=== PATIENT | female | born 1975 | race Caucasian/White ===

== ENCOUNTER 2018-11-07 06:41 | Day surgery (SDC) | payer OTHER ==
[~2018-11-07] VITALS: Ht 177.8 cm; Wt 80.3 kg
[~2018-11-07 06:41] MED LIST: LR 1,000 ML IV ONE; MULTCAP PO; NS 1,000 ML IV SCH; SODIUM CHLORIDE 0.9% 1000ML IV SCH
[2018-11-07 07:11] LABS: HEMOGLOBIN 13.7 g/dl (12.0-15.5); MEAN CORPUSCULAR HEMOGLOBIN 31.4 pg (27.0-33.0); MEAN CORPUSCULAR HGB CONC 33.4 g/dl (32.0-36.5); MEAN CORPUSCULAR VOLUME 93.8 fl (80.0-96.0); PLATELET COUNT, AUTOMATED 134 10^3/uL (150-450); RED BLOOD COUNT 4.37 10^6/uL (4.00-5.40); WHITE BLOOD COUNT 5.7 10^3/uL (4.0-10.0)
[2018-11-07 07:41] LABS: BLOOD UREA NITROGEN 14 MG/DL (7-18); CALCIUM LEVEL 8.8 MG/DL (8.5-10.1); CARBON DIOXIDE LEVEL 27 MEQ/L (21-32); CHLORIDE LEVEL 108 MEQ/L (98-107); GLOMERULAR FILTRATION RATE > 60.0 (>58); GLUCOSE, FASTING 88 MG/DL (70-100); POTASSIUM SERUM 3.7 MEQ/L (3.5-5.1); SODIUM LEVEL 141 MEQ/L (136-145)
[2018-11-07] MEDS ORDERED: ACETAMINOPHEN 650 MG SUPP As Ordered ONE (08:56)
[2018-11-07] MEDS ORDERED: KETOROLAC 60 MG/2 ML VIAL (J1885) As Ordered ONE (09:13)
[2018-11-07] MEDS ORDERED: dexameTHASONE 4 MG/ML 1ML VIAL (J1100) As Ordered ONE (09:13)
[2018-11-07] MEDS ORDERED: MIDAZOLAM INJ 2 MG/2 ML VIAL (J2250) As Ordered ONE (09:13)
[2018-11-07] MEDS ORDERED: ePHEDrine SULFATE 25 MG/5 ML(5MG/ML) SYRINGE As Ordered ONE (09:13)
[2018-11-07] MEDS ORDERED: fentaNYL 100 MCG/2 ML INJECTION (J3010) As Ordered ONE (09:13)
[2018-11-07] MEDS ORDERED: LIDOCAINE 2% INJ 100 MG/5 ML SDV (FOR ANES.) As Ordered ONE (09:13)
[2018-11-07] MEDS ORDERED: ONDANSETRON 4MG/2ML VIAL (J2405) As Ordered ONE (09:14)
[2018-11-07] MEDS ORDERED: PROPOFOL 200 MG/20 ML VIAL As Ordered ONE (09:14)
[2018-11-07] MEDS ORDERED: fentaNYL 100 MCG/2 ML INJECTION (J3010) IV PRN (10:00)
[2018-11-07] MEDS ORDERED: PERCOCET 5MG/325MG TAB PO PRN (10:00)
[2018-11-07] MEDS ORDERED: LR 1,000 ML IV SCH (10:00)
[2018-11-07] MEDS ORDERED: ONDANSETRON 4MG/2ML VIAL (J2405) IV PRN (10:00)
[2018-11-07 10:30] VITALS: BP 124/66
[2018-11-07] MEDS ORDERED: KETOROLAC 30 MG/ML VIAL (J1885) IM SCH (15:00)
--- NOTE | 2018-11-11 14:26 | RO ---
DATE OF PROCEDURE: 11/07/2018 PREPROCEDURE DIAGNOSES: Menorrhagia, post tubal ligation syndrome, cervical prolapse, gaping vagina, adenomyosis, hemorrhoids, large volume cervix, cystocele. POSTPROCEDURE DIAGNOSES: Menorrhagia, post tubal ligation syndrome, cervical prolapse, gaping vagina, adenomyosis, hemorrhoids, large volume cervix, cystocele. OPERATION PROPOSED: Hysteroscopy, dilation and curettage (D and C), endometrial NovaSure ablation. OPERATION PERFORMED: Hysteroscopy, dilation and curettage, endometrial NovaSure ablation. SURGEON: Yinka Gifford MD HOSE WRAPPER: ANESTHESIA: General. DESCRIPTION OF PROCEDURE: After adequate time-out, prepped and draped in the lithotomy position, bladder drained for 250 mL of clear urine. Sequentials in place, acetaminophen suppository 1300 mg per rectum. No antibiotics required. Weighted speculum vagina. Single-tooth tenaculum on the anterior lip of a large volume cervix with significant cervical uterine prolapse. Uterus was sounded to a depth of 12 cm. It was already dilated to a Crane 7-8. Endometrial curettings were performed and sent off to pathology under separate cover. The endometrial NovaSure ablation machine was placed in the uterus, approximately 6.5 length, 4.0 width, a power setting of 143 and an endometrial NovaSure ablation was performed for 60 seconds. The instrument was removed, the hysteroscope was introduced. Panoramic review showed the good burn throughout the anterior, posterior and lateral cyr, especially at the cornua. With instrument and pad counts correct, we reevaluated. This lady has a large gaping introitus with a significant cystocele and a large volume cervix, adenomyosis and her hemorrhoids seem to be persistent. All instrument and pad counts were correct, and the patient was sent to recovery in good condition. Estimated blood loss was less than 25 mL.
== END 2018-11-07 11:15 | disposition home or self-care (01) ==
LOC: M SDC 06:41
PROVIDERS: ATTEND Obstetrics & Gynecology
DX: N92.0 Excessive and frequent menstruation with regular cycle (principal); N99.89 Other postprocedural complications and disorders of genitourinary system
CPT/HCPCS: 36415; 58563; 80048; 84702; 85027; 88305; J1100; J1885; J2250; J2405; J3010